=== PATIENT | male | born 1950 | race Caucasian/White ===

== ENCOUNTER 2019-06-17 08:56 | Outpatient (CLI) | payer OTHER | END 2019-06-17 23:59 | disposition home or self-care (01) | LOC: RAD 08:56 | PROVIDERS: ATTEND Orthopaedic Surgery | DX: R06.00 Dyspnea, unspecified (principal); I25.9 Chronic ischemic heart disease, unspecified | CPT/HCPCS: 71046; 94060; 94726; 94729 ==

== ENCOUNTER 2019-08-22 09:54 | Outpatient (CLI) | payer OTHER | END 2019-08-22 23:59 | disposition home or self-care (01) | LOC: CARD 09:54 | PROVIDERS: ATTEND Internal Medicine | DX: G60.3 Idiopathic progressive neuropathy (principal) | CPT/HCPCS: 95886; 95908 ==